=== PATIENT | female | born 2000 ===

== ENCOUNTER 2022-04-06 17:00 | Outpatient (CLI) | payer OTHER | END 2022-04-06 17:01 | disposition home or self-care (01) | LOC: SLEEPLAB 17:00 | PROVIDERS: ATTEND Student in an Organized Health Care Education/Training Program | DX: G47.9 Sleep disorder, unspecified (principal); R40.0 Somnolence; G47.11 Idiopathic hypersomnia with long sleep time | CPT/HCPCS: 95800 ==

== ENCOUNTER 2022-06-28 19:00 | Outpatient (CLI) | payer OTHER | END 2022-06-28 19:01 | disposition home or self-care (01) | LOC: SLEEPLAB 19:00 | PROVIDERS: ATTEND Student in an Organized Health Care Education/Training Program | DX: G47.9 Sleep disorder, unspecified (principal); R06.83 Snoring; G47.10 Hypersomnia, unspecified; R29.898 Other symptoms and signs involving the musculoskeletal system; G47.00 Insomnia, unspecified; G83.9 Paralytic syndrome, unspecified; R44.3 Hallucinations, unspecified; G47.11 Idiopathic hypersomnia with long sleep time; G47.63 Sleep related bruxism | CPT/HCPCS: 95810 ==

== ENCOUNTER 2023-01-23 17:00 | Outpatient (CLI) | payer OTHER | END 2023-01-24 10:07 | disposition home or self-care (01) | LOC: SLEEPLAB 17:00 | PROVIDERS: ATTEND Student in an Organized Health Care Education/Training Program | DX: G47.10 Hypersomnia, unspecified (principal); R53.83 Other fatigue; F90.9 Attention-deficit hyperactivity disorder, unspecified type; G47.00 Insomnia, unspecified | CPT/HCPCS: 95805; 95810 ==